=== PATIENT | female | born 1980 | race Caucasian/White ===

== ENCOUNTER 2019-05-24 07:07 | Day surgery (SDC) | payer OTHER ==
[~2019-05-24] VITALS: Ht 154.9 cm; Wt 77.1 kg
[2019-05-24] MEDS ORDERED: fentaNYL 0.05 MG/ML VIAL ONE (10:53)
[2019-05-24] MEDS ORDERED: MIDAZOLAM 2 MG/2 ML VIAL ONE (10:54)
[2019-05-24] MEDS ORDERED: LIDOCAINE 2% 100 MG/5 ML UJET TP ONE (10:56)
[2019-05-24] MEDS ORDERED: MIDAZOLAM 2 MG/2 ML VIAL IVP ONE (12:35)
[2019-05-24] MEDS ORDERED: fentaNYL 0.05 MG/ML VIAL IVP ONE (12:35)
== END 2019-05-24 11:55 | disposition home or self-care (01) ==
LOC: MMU 07:07 → MOR 07:07
PROVIDERS: ATTEND Internal Medicine Gastroenterology
DX: K64.8 Other hemorrhoids (principal); K62.5 Hemorrhage of anus and rectum; Z98.890 Other specified postprocedural states
CPT/HCPCS: 45378; 81025; J2250; J3010